=== PATIENT | female | born 1960 | race Caucasian/White ===

== ENCOUNTER 2018-01-14 14:06 | Emergency (ER) | payer OTHER, SELFPAY ==
[2018-01-14 14:09] VITALS: BP 147/91; PULSE 73; RESP 15; TEMP 36.6; O2SAT 98; BMI 31.5
[2018-01-14 14:16] VITALS: BP 140/91; PULSE 76; RESP 15; O2SAT 97
[2018-01-14 14:26] LABS: Bedside Glucose 122 mg/dL (70-110)
--- NOTE | 2018-01-14 14:29 | EKG12_ITS ---
Test Reason : SYNCOPE Blood Pressure : / mmHG Vent. Rate : 085 BPM Atrial Rate : 085 BPM P-R Int : 168 ms QRS Dur : 090 ms QT Int : 398 ms P-R-T Axes : 028 -02 011 degrees QTc Int : 473 ms Normal sinus rhythm Cannot rule out Anterior infarct , age undetermined Abnormal ECG Confirmed by TRINH DANIELS, SHAUN ([id number]), acquisitions editor NIC JEAN ([id number]) on 01/17/2018 1:05:14 PM Referred By: BHAVANA Confirmed By:SHAUN TSANG MD
[2018-01-14 14:40] LABS: Absolute Lymphocyte Count 2.48 X10^3/ul (0.83-4.51); Absolute Neutrophil Count 2.9 X10^3/uL (2.0-7.7); Basophil# 0.01 X10^3/uL; Basophil% 0.2 % (0-1); Eosinophil# 0.12 X10^3/uL; Hematocrit 40.5 % (37-47); Hemoglobin 13.4 g/dl (12.0-15.0); Lymphocyte # 2.48 X10^3/ul (4.0); Lymphocyte % 41.6 % (19-41); Mean Corp Hgb Conc 33.1 g/gl (32-36); Mean Corpuscular Hgb 28.3 pg (27.0-32.0); Mean Corpuscular Volume 85.4 fL (81-99); Mean Platelet Vol. 10.6 fl (6.2-12.0); Monocyte% 6.7 % (0-10); Neutrophil # 2.94 X10^3/uL (2.7-7.7); Neutrophil % 49.3 % (47-70); POSITIVE COUNT NO; POSITIVE DIFFERENTIAL NO; POSITIVE MORPHOLOGY NO; Platelet Count 204 K/mm3 (150-450); RBC Distribution Width CV 13.3 % (11.6-14.6); Red Blood Count 4.74 M/mm3 (4.2-5.4)
[2018-01-14 14:53] LABS: ALB/GLOB Ratio 1.2 RATIO (0.9-2.4); AST(SGOT) 47 U/L (15-37); Alanine Aminotransfer ALT/SGPT 53 U/L (13-56); Albumin, Serum 3.9 g/dL (3.2-5.0); Alkaline Phosphatase 136 U/L (45-117); Anion Gap 18 (5-15); BUN 15 mg/dL (7-18); BUN/Creat Ratio 20.5 RATIO (10-20); Calcium,Total 9.1 mg/dL (8.5-10.1); Chloride 102 mmol/L (98-107); Creatinine, Serum 0.73 mg/dL (0.55-1.02); EST Glomerular Filtration Rate 88 mL/min (>60); Est Glom Filt Rate - Afr Amer 106 mL/min (>60); Estimated Creatinine Clearance 68.06 ml/min; Globulin 3.3 g/dL (2.2-4.2); Glucose 130 mg/dL (74-106); Lipase 98 U/L (73-393); Potassium 3.4 mmol/L (3.5-5.1); Protein, Total 7.2 g/dL (6.4-8.2); Sodium Level 137 mmol/L (136-145)
[2018-01-14 15:02] LABS: Bacteria 0 SEEN /hpf (None Seen); Mucous, Urine 0 SEEN /hpf (<or=2+); Red Blood Cells-Urine 0 SEEN /hpf (0-5); White Blood Cells 0 SEEN /hpf (0-5)
[2018-01-14 15:03] LABS: Color, Urine Yellow (Yellow); Glucose, Dipstick Normal (Normal); Ketone-Dipstick Negative (Negative); Leukocyte Esterase-Dipstick Negative /ul (Negative); Nitrite-Dipstick Negative (Negative); Occult Blood-Urine Negative /ul (Negative); Protein-Dipstick Negative (Negative); Specific Gravity, Urine 1.015 (1.002-1.030); Urine Bilirubin Dipstick Negative (Negative); Urine Clarity Clear (Clear); Urine Urobilinogen Normal (Normal)
[2018-01-14 15:04] LABS: Squamous Epithelial Cells - UA 0-5 SEEN /hpf (5-10)
[2018-01-14 15:45] LABS: Bedside Glucose 137 mg/dL (70-110)
[2018-01-14] MEDS: 0.9% Normal Saline 1,000 ML 999 ML IV ×3 (16:12→17:15)
[2018-01-14 16:13] VITALS: BP 128/80; PULSE 82; RESP 20; O2SAT 99
[2018-01-14 16:40] LABS: Lactic Acid 2.9 mmol/L (0.4-2.0)
--- NOTE | 2018-01-14 16:43 | ED.RN ---
pt lactic 2.9. dr. salas informed.
--- NOTE | 2018-01-14 16:45 | ED.VISSUMM ---
- ER Visit Summary Date of Service: 01/14/18 Chief Complaint: Near syncope History of Present Illness: The patient is a 57 F who is a type II diabetic on metformin and glyburide. The patient states that today she got up and had breakfast at 0900 consisting of a slice of peanut butter toast and 3 clementines. This afternoon at work around 1400 hrs. the patient began to feel shaky sweaty nauseated went to the bathroom. 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 She was given orange juice by some fellow coworkers and when EMS arrived her blood sugar was 101. She states that she had been breathing rather fast and had some facial tingling which has resolved. Patient denies any chest pain or shortness of breath. No palpitations. No fevers. Physical Examination: Afebrile vital signs are stable Gen: Well-nourished well-developed Head: Normocephalic atraumatic Eyes: Perrl EOMI ENT: TMs clear no rhinorrhea moist mucous membranes Neck: Supple no lymphadenopathy no JVD nontender CVS: Regular rate rhythm no murmurs normal S1-S2 Respiratory: No distress clear to auscultation bilaterally chest nontender Abdomen: Soft nontender nondistended normal bowel sounds no masses Back: Nontender Extremity: Nontender no edema Skin: Normal color no rash Neuro: alert orientated ?3 CN II-XII intact normal strength sensation reflexes gait cerebellar Psych: Normal affect normal mood Test Results: CBC was normal. Chemistry showed a CO2 of 17 and anion. Lactic acid 2.9 and ketones are negative. Troponin negative. EKG sinus at a rate of 85. Chest x-ray shows a normal mediastinal silhouette. Emergency Department Course and Treatment: Patient received IV fluids. She has had ham sandwich, yogurt, Richelle Mcintyre, pop, and other foods. She has been resting comfortably has not had any events on monitor. I suspect the elevated lactic acid is due to metformin use. Patient will receive a second liter of IV fluids and we will recheck her BMP. As long as the patient is feeling better I believe the patient can be discharged home. I believe the patient most likely had a hypoglycemic episode. She will return if worsening or concerns. Follow-up with no doc family medicine Dr. Hopson is next up. Impression: 1. Diabetic hypoglycemia This note was generated with [employer] software. It may contain incorrect words, spelling, and punctuation that were not noted in review of the chart prior to signing ED Disposition - Plan for ED Patient: Disposition: Home or Assisted Living Chief Complaint: Syncope Instructions: ED Diabetes Hypoglycemia Oral Agent Referrals: Apolinar Hopson MD [STAFF PHYSICIAN] - As soon as possible
[2018-01-14 17:21] LABS: Bedside Glucose 175 mg/dL (70-110)
[2018-01-14 18:54] VITALS: BP 136/78; PULSE 67; RESP 18; O2SAT 99
[2018-01-14 18:56] LABS: Anion Gap 12 (5-15); BUN 14 mg/dL (7-18); BUN/Creat Ratio 23.3 RATIO (10-20); Calcium,Total 7.8 mg/dL (8.5-10.1); Chloride 111 mmol/L (98-107); EST Glomerular Filtration Rate 110 mL/min (>60); Est Glom Filt Rate - Afr Amer 133 mL/min (>60); Glucose 138 mg/dL (74-106); Sodium Level 145 mmol/L (136-145)
[2018-01-14 19:38] VITALS: BP 146/86; PULSE 64; RESP 18; O2SAT 98
[2018-01-14 19:55] LABS: Reflex Lactate? Y
== END 2018-01-14 19:39 | disposition home or self-care (01) ==
PROVIDERS: Emergency Provider Emergency Medicine
DX: E11.649 Type 2 diabetes mellitus with hypoglycemia without coma (principal); Z79.84 Long term (current) use of oral hypoglycemic drugs; Z87.891 Personal history of nicotine dependence
CPT/HCPCS: 36415; 71045; 80048; 80053; 81001; 82009; 82962; 83605; 83690; 84484; 85025; 93005; 96360; 96361; 99285; J7030; A4216

== ENCOUNTER 2018-06-10 21:10 | Emergency (ER) | payer OTHER, SELFPAY ==
[2018-06-10 21:12] VITALS: BP 159/90; PULSE 84; RESP 18; TEMP 36.6; O2SAT 98; BMI 29.2
--- NOTE | 2018-06-10 21:28 | ED.VISSUMM ---
- ER Visit Summary Date of Service: 06/10/18 Chief Complaint: Fall History of Present Illness: The patient is a 57 F presenting after fall. Patient was at work. She tripped and fell landing on her right knee. She did not hit her head or lose consciousness. She has not tried to ambulate since. She complains of right knee pain. She denies other injuries. Physical Examination: Vitals are stable. Patient is afebrile. Alert no acute distress. HEENT exam is unremarkable. Neck is nontender Lungs are clear and equal bilaterally. Heart is regular rate and rhythm. Extremities anterior right knee tenderness with painful range of motion, normal distal pulse. Skin is warm and dry. No focal neurologic deficit. Remainder of exam is unremarkable. Emergency Department Course and Treatment: X-ray right knee shows no acute process. Patient was given Hume x1 in the ED. She is advised to follow-up with corporate care. Advised return to ED if worsening complaints. Disposition: Discharge home Impression: Right knee contusion This note was generated with curated.by dictation software. It may contain incorrect words, spelling, and punctuation that were not noted in review of the chart prior to signing ED Disposition - Plan for ED Patient: Instructions: ED Sprain Knee Prescriptions: Hydrocodone Bitart/Apap 5-325 [[place] 5MG-325MG] 1 tablet PO Q6H PRN PRN 3 Days #10 tablet PRN Reason: Pain [facility] [GROUP OF PHYSICIANS] - Apolinar Hopson MD [Primary Care Provider] -
--- NOTE | 2018-06-10 21:32 | RAD_ITS ---
STUDY: X-RAY - RIGHT KNEE REASON FOR EXAM: Female, 57 years old. Pain after a fall TECHNIQUE: 5 view(s) of the knee. COMPARISON: None. FINDINGS: Normal visualized distal femur. Normal visualized proximal tibia and fibula. Normal proximal tibiofibular articulation. Normal medial femorotibial compartment. Normal lateral femorotibial compartment. Normal patellofemoral articulation. The soft tissue structures are unremarkable. RAD/Knee 4 or More Views IMPRESSION: Normal x-ray examination of the knee. Electronically Signed: Bj Valerio MD at 22:58 EST , Service support ,
--- NOTE | 2018-06-10 23:11 | ED.DEP ---
ED Disposition - Plan for ED Patient: Instructions: ED Sprain Knee Prescriptions: Hydrocodone Bitart/Apap 5-325 [[place] 5MG-325MG] 1 tablet PO Q6H PRN PRN 3 Days #10 tablet PRN Reason: Pain Referrals: Apolinar Hopson MD [Primary Care Provider[facility] - [facility] [GROUP OF PHYSICIANS] -
--- NOTE | 2018-06-10 23:12 | DCINST.ED_ITS ---
ED Disposition - Plan for ED Patient: Instructions: ED Sprain Knee Prescriptions: Hydrocodone Bitart/Apap 5-325 [[place] 5MG-325MG] 1 tablet PO Q6H PRN PRN 3 Days #10 tablet PRN Reason: Pain Referrals: Apolinar Hopson MD [Primary Care Provider[facility] - [facility] [GROUP OF PHYSICIANS] -
[2018-06-10] MEDS: HYDROcodone Bitartrate/Apap 5/325 Tablet PO (23:14)
== END 2018-06-10 23:24 | disposition home or self-care (01) ==
PROVIDERS: Emergency Provider Emergency Medicine; PCP Internal Medicine
DX: S80.01XA Contusion of right knee, initial encounter (principal); I10 Essential (primary) hypertension; E11.9 Type 2 diabetes mellitus without complications; Z79.84 Long term (current) use of oral hypoglycemic drugs; Z79.899 Other long term (current) drug therapy; W01.0XXA Fall on same level from slipping, tripping and stumbling without subsequent striking against object, initial encounter; Y93.89 Activity, other specified; Y92.89 Other specified places as the place of occurrence of the external cause; Y99.0 Civilian activity done for income or pay
CPT/HCPCS: 73564; 99283

== ENCOUNTER 2018-07-28 06:12 | Emergency (ER) | payer BC, SELFPAY ==
[2018-07-28 06:13] VITALS: BP 167/112; PULSE 62; RESP 18; TEMP 36.6; O2SAT 97; BMI 29.2
[2018-07-28 06:15] VITALS: BP 179/99
[2018-07-28 06:37] VITALS: BP 155/88; PULSE 63; RESP 16; O2SAT 96
--- NOTE | 2018-07-28 06:37 | RAD_ITS ---
HISTORY: Cough EXAM:XR Chest 1 View: Portable COMPARISON: 01/14/2018 FINDINGS: EKG leads in place. Normal heart size. No vascular congestion, pleural effusion, or acute pulmonary infiltration. No pneumothorax. The bony thorax appears intact. RAD/Chest 1 View IMPRESSION: No acute cardiopulmonary disease. at 0712 Reported and signed by: Alton Asher MD Electronically Signed: Alton Asher, at 7:11 EDT Tel , Service support ,
--- NOTE | 2018-07-28 06:37 | EKG12_ITS ---
Test Reason : DIZZY Blood Pressure : / mmHG Vent. Rate : 056 BPM Atrial Rate : 056 BPM P-R Int : 136 ms QRS Dur : 096 ms QT Int : 406 ms P-R-T Axes : 024 000 019 degrees QTc Int : 391 ms Sinus bradycardia Otherwise normal ECG Confirmed by TRINH DANIELS, SHAUN ([id number]), primer expeditor and drier BENJAMÍN NOVOA ([id number]) on 07/31/2018 1:01:31 PM Referred By: MARK Confirmed By:SHAUN TSANG MD
--- NOTE | 2018-07-28 06:37 | CT_ITS ---
HISTORY: FACIAL NUMBNESS/DIZZY TECHNIQUE: Multiple axial images were obtained of the brain without intravenous contrast. A radiation dose optimization technique was used for this scan. IV Contrast dosage and agent: None. COMPARISON: None FINDINGS: Normal ventricles and normal vila-white matter differentiation. No intracranial mass, hemorrhage, or acute parenchymal abnormality. Posterior fossa structures are unremarkable. No suspicious extra-axial fluid collection. Right maxillary sinus mucosal thickening. As visualized, the paranasal sinuses appear clear. CT/Brain/Head without Contrast IMPRESSION: 1. Normal CT brain without contrast. 2. Right maxillary sinusitis. Individualized dose optimization techniques were used for this CT. at 0716 Reported and signed by: Alton Asher MD Electronically Signed: Alton Asher, at 7:15 EDT Tel , Service support ,
--- NOTE | 2018-07-28 06:47 | ED.VISSUMM ---
- ER Visit Summary Date of Service: 07/28/18 Chief Complaint: Lightheadedness History of Present Illness: The patient is a 58 F who presents with lightheadedness. This began acutely about 1 hour ago. She also complains of numbness on both sides of her face. No extremity weakness or paresthesias. No speech difficulty. She also complains of throbbing right leg pain for a couple of weeks. She denies any chest pain or shortness of breath. She did have some diarrhea last night. No nausea or vomiting. Physical Examination: Afebrile vitals notable for blood pressure 179/99 No distress resting comfortably Moist mucous membranes Heart regular rate and rhythm Lungs are clear Abdomen soft nontender NIH stroke scale is 0 she has no focal or lateralizing neurological deficits she has normal strength normal sensation clear speech Test Results: EKG shows sinus rhythm at a rate of 56. Labs notable for glucose 328 otherwise unremarkable. Chest x-ray shows no acute disease. CT the head shows normal brain. there is right maxillary sinusitis Emergency Department Course and Treatment: Patient's complaints of bilateral facial numbness are not suggestive of territorial cerebral ischemia. I doubt this is related to process such as TIA. Workup as above is unremarkable. Patient was advised to follow-up with her primary care physician. She was also advised that her glucose was high and she should follow-up to have a hemoglobin A1c and continue to monitor her blood sugars. In regards to her thigh pain on reevaluation she actually states that she has had a throbbing lump there for much longer than a couple of weeks. She was unable to find the lump here. She had no reproducible tenderness. Examination of her thigh is normal. No rash. No erythema. No tenderness. No nodule or mass. She has normal distal pulses. She was advised to also follow-up with her primary care physician should these symptoms continue. Is in agreement with this plan was discharged home. Treatment Plan: [] Disposition: Discharge Impression: Lightheadedness Facial numbness This note was generated with [employer] dictation software. It may contain incorrect words, spelling, and punctuation that were not noted in review of the chart prior to signing ED Disposition - Plan for ED Patient: Referrals: Apolinar Hopson MD [Primary Care Provider] -
[2018-07-28 06:50] VITALS: O2SAT 98
[2018-07-28 06:52] LABS: Absolute Lymphocyte Count 2.02 X10^3/ul (0.83-4.51); Absolute Neutrophil Count 3.2 X10^3/uL (2.0-7.7); Basophil# 0.01 X10^3/uL; Basophil% 0.2 % (0-1); Eosinophil# 0.28 X10^3/uL; Eosinophils% 4.8 % (0-5); Hematocrit 40.4 % (37-47); Hemoglobin 13.6 g/dl (12.0-15.0); Lymphocyte # 2.02 X10^3/ul (4.0); Lymphocyte % 34.5 % (19-41); Mean Corp Hgb Conc 33.7 g/gl (32-36); Mean Corpuscular Hgb 28.7 pg (27.0-32.0); Mean Corpuscular Volume 85.2 fL (81-99); Mean Platelet Vol. 10.6 fl (6.2-12.0); Monocyte# 0.35 X10^3/uL; Neutrophil # 3.18 X10^3/uL (2.7-7.7); Neutrophil % 54.2 % (47-70); Platelet Count 210 K/mm3 (150-450); RBC Distribution Width CV 13.1 % (11.6-14.6); RBC Distribution Width SD 40.9 fl (35.1-43.9); Red Blood Count 4.74 M/mm3 (4.2-5.4); White Blood Count 5.9 K/mm3 (4.4-11.0)
[2018-07-28 06:53] LABS: POSITIVE COUNT NO; POSITIVE DIFFERENTIAL NO; POSITIVE MORPHOLOGY NO
[2018-07-28 06:58] LABS: International Normalized Ratio 0.9; Prothrombin Time (Protime)PT. 11.6 SECONDS (11.7-14.9)
[2018-07-28 06:59] LABS: Partial Thromboplast Time 22.7 Seconds (24.1-36.2)
[2018-07-28 07:08] LABS: Anion Gap 12 (5-15); BUN 20 mg/dL (7-18); BUN/Creat Ratio 28.7 RATIO (10-20); Calcium,Total 9.4 mg/dL (8.5-10.1); Chloride 102 mmol/L (98-107); EST Glomerular Filtration Rate 92 mL/min (>60); Est Glom Filt Rate - Afr Amer 111 mL/min (>60); Estimated Creatinine Clearance 70.13 ml/min; Glucose 328 mg/dL (74-106); Potassium 4.3 mmol/L (3.5-5.1); Sodium Level 136 mmol/L (136-145)
--- NOTE | 2018-07-28 07:37 | ED.DEP ---
ED Disposition - Plan for ED Patient: Instructions: ED Dizziness UKO, ED Paraesthesias Referrals: Apolinar Hopson MD [Primary Care Provider] -
[2018-07-28 07:58] VITALS: BP 148/95; PULSE 61; RESP 15; O2SAT 96
== END 2018-07-28 07:59 | disposition home or self-care (01) ==
PROVIDERS: Emergency Provider Emergency Medicine; Family Provider Internal Medicine; PCP Internal Medicine
DX: R42 Dizziness and giddiness (principal); R20.0 Anesthesia of skin; E11.9 Type 2 diabetes mellitus without complications; I10 Essential (primary) hypertension; E78.00 Pure hypercholesterolemia, unspecified; Z86.73 Personal history of transient ischemic attack (TIA), and cerebral infarction without residual deficits; Z79.84 Long term (current) use of oral hypoglycemic drugs; Z79.82 Long term (current) use of aspirin; Z79.899 Other long term (current) drug therapy
CPT/HCPCS: 70450; 71045; 80048; 84484; 85025; 85610; 85730; 93005; 99284; A4216

== ENCOUNTER 2018-08-10 15:31 | Outpatient (RCR) | payer BC, SELFPAY ==
[2018-08-01 15:58] VITALS: BMI 29.2
== END 2018-09-05 23:59 ==
LOC: DC 15:31
PROVIDERS: Family Provider Internal Medicine; PCP Internal Medicine; Visit Provider Nurse Practitioner Family
DX: Z71.3 Dietary counseling and surveillance (principal); E11.9 Type 2 diabetes mellitus without complications
CPT/HCPCS: G0108

== ENCOUNTER 2018-09-20 16:30 | Outpatient (RCR) | payer BC, SELFPAY ==
[2018-09-06 00:31] VITALS: BMI 29.2
== END 2018-10-06 23:59 ==
LOC: DC 16:30
PROVIDERS: Family Provider Internal Medicine; PCP Internal Medicine; Visit Provider Nurse Practitioner Family
DX: Z71.3 Dietary counseling and surveillance (principal); E11.9 Type 2 diabetes mellitus without complications
CPT/HCPCS: 97802; 97803

== ENCOUNTER 2018-10-04 06:05 | Emergency (ER) | payer BC, SELFPAY ==
[2018-10-04 06:05] VITALS: BP 164/114; PULSE 60; RESP 20; TEMP 36.3; O2SAT 100; BMI 29.1; BMI 29.7
[2018-10-04 06:09] VITALS: RESP 20
--- NOTE | 2018-10-04 06:11 | ED.RN ---
RN CALLED FOR EKG, PULLED OLD EKGS FOR
[2018-10-04 06:13] VITALS: O2SAT 99
--- NOTE | 2018-10-04 06:13 | EKG12_ITS ---
Test Reason : Blood Pressure : / mmHG Vent. Rate : 054 BPM Atrial Rate : 054 BPM P-R Int : 142 ms QRS Dur : 090 ms QT Int : 420 ms P-R-T Axes : 000 -13 013 degrees QTc Int : 398 ms Sinus bradycardia Borderline Low voltage QRS Confirmed by DAWNA DANIELS, AUGUSTINE ([id number]), editorial writer NIC JEAN ([id number]) on 10/09/2018 12:57:50 PM Referred By: Confirmed By:AUGUSTINE TONEY MD
--- NOTE | 2018-10-04 06:13 | RAD_ITS ---
HISTORY: CPChest PainRAD - ChestPT STATED MID BACK PAIN WITH SOB ONSET THIS MORNINGNO HX OF HEART LUNG DISEASE NO CA NONSMOKER EXAMINATION/TECHNIQUE: XR Chest 1 View: Portable COMPARISON: 07/28/2018 FINDINGS: EKG leads in place. No significant change. Normal heart size. No vascular congestion, pleural effusion, or acute pulmonary infiltration. No pneumothorax. The bony thorax appears intact. RAD/Chest 1 View (Portable) IMPRESSION: No acute cardiopulmonary disease. No significant interval change. at 0644 Reported and signed by: Alton Asher MD Electronically Signed: Alton Asher, at 6:43 EDT Tel , Service support ,
[2018-10-04 06:30] LABS: Absolute Lymphocyte Count 2.43 X10^3/ul (0.83-4.51); Basophil# 0.02 X10^3/uL; Basophil% 0.3 % (0-1); Eosinophil# 0.17 X10^3/uL; Eosinophils% 2.8 % (0-5); Hematocrit 43.4 % (37-47); Hemoglobin 14.2 g/dl (12.0-15.0); Lymphocyte # 2.43 X10^3/ul (4.0); Mean Corp Hgb Conc 32.7 g/gl (32-36); Mean Corpuscular Hgb 28.2 pg (27.0-32.0); Mean Corpuscular Volume 86.1 fL (81-99); Mean Platelet Vol. 10.6 fl (6.2-12.0); Monocyte% 6.6 % (0-10); Neutrophil # 3.04 X10^3/uL (2.7-7.7); Neutrophil % 50.1 % (47-70); Platelet Count 238 K/mm3 (150-450); RBC Distribution Width CV 13.2 % (11.6-14.6); RBC Distribution Width SD 40.6 fl (35.1-43.9); Red Blood Count 5.04 M/mm3 (4.2-5.4); White Blood Count 6.1 K/mm3 (4.4-11.0)
[2018-10-04] MEDS: Morphine 4 MG/ML Syringe IV (06:31)
[2018-10-04] MEDS: Ondansetron 4 MG/2 ML Vial IV (06:31)
[2018-10-04] MEDS: Aspirin 81 MG TAB.CHEW 324 MG PO (06:31)
[2018-10-04 06:33] LABS: POSITIVE COUNT NO; POSITIVE DIFFERENTIAL NO; POSITIVE MORPHOLOGY NO
--- NOTE | 2018-10-04 06:34 | ED.DCSUM_ITS ---
- ER Visit Summary Date of Service: 10/04/18 Chief Complaint: Back pain History of Present Illness: The patient is a 58 F presenting with back pain. She states this started approximately an hour prior to arrival. She states she was getting ready doing her normal morning activities and she started to have left upper back pain and pain between her shoulder blades. She denies any trauma. No history of similar symptoms in the past. She denies chest pain. She has shortness of breath associated with the pain. She has history of diabetes, hypertension. Denies other complaints. Physical Examination: Vitals are stable. Patient is afebrile. Alert no acute distress. HEENT exam is unremarkable. Neck is supple. Lungs are clear and equal bilaterally. Heart is regular rate and rhythm. Abdomen is soft nontender nondistended. Back: Left paraspinal thoracic muscle tenderness. No midline tenderness. Extremities are unremarkable. Skin is warm and dry. No focal neurologic deficit. Normal strength and sensation Remainder of exam is unremarkable. Emergency Department Course and Treatment: Patient was given morphine, Zofran IV. EKG is sinus rate of 54 with no acute ischemic changes. CBC, chemistries unremarkable other than glucose 218, BUN 20. Troponin is negative. D-dimer negative. Chest x-ray shows no acute process. On reevaluation, patient is feeling improved. Repeat blood pressure 141/74. CTA chest to rule out dissect ion will be obtained as well as delta troponin. As long as these are negative patient will be discharged. She states she has muscle relaxers at home. She will follow-up with her primary care physician. Advised return to ED if worsening complaints. Disposition: Pending Impression: Thoracic back pain This note was generated with [employer] dictation software. It may contain incorrect words, spelling, and punctuation that were not noted in review of the chart prior to signing ED Disposition - Plan for ED Patient: Instructions: ED Neck Back Pain General Referrals: Apolinar Hopson MD [Primary Care Provider] -
[2018-10-04 06:43] LABS: D-Dimer Quantitative (DVT/PE) < 0.27 FEU/ug/m (0.27-0.49)
[2018-10-04 06:47] LABS: Anion Gap 10 (5-15); BUN 20 mg/dL (7-18); BUN/Creat Ratio 26.9 RATIO (10-20); Calcium,Total 9.4 mg/dL (8.5-10.1); Chloride 102 mmol/L (98-107); Creatinine, Serum 0.74 mg/dL (0.55-1.02); EST Glomerular Filtration Rate 85 mL/min (>60); Est Glom Filt Rate - Afr Amer 103 mL/min (>60); Estimated Creatinine Clearance 66.34 ml/min; Glucose 218 mg/dL (74-106); Potassium 4.3 mmol/L (3.5-5.1); Sodium Level 137 mmol/L (136-145)
--- NOTE | 2018-10-04 06:59 | CT_ITS ---
HISTORY: UPPER BACK PAIN ? DISSECTION EXAMINATION: CTA Chest WO/W Contrast TECHNIQUE: Helically acquired images were obtained of the chest following IV contrast as per pulmonary angiogram protocol with 3D reconstructions. A radiation dose optimization technique was used for this scan. IV Contrast dosage and agent: 100cc Isovue 370 COMPARISON: Portable chest 10/04/2018 FINDINGS: The main, segmental, and visualized subsegmental pulmonary arteries show normal opacification and appearance. No PE. Thoracic aorta is normal in caliber without evidence of aneurysm or dissection. No pericardial effusion. Multiple small mediastinal lymph nodes. No suspicious lymph node enlargement. The lung parenchyma appears clear. No pulmonary infiltrate, pulmonary nodule, or mass. No pleural effusion or significant pleural disease. Fatty liver noted. Bones: No acute osseous abnormality. CT/CTA Chest W/WO Contrast IMPRESSION: 1. Normal CTA chest. No evidence of thoracic aortic aneurysm or dissection. 2. Fatty liver noted. Individualized dose optimization techniques were used for this CT. at 0736 Reported and signed by: Alton Asher MD Electronically Signed: Alton Asher, at 7:35 EDT Tel , Service support ,
--- NOTE | 2018-10-04 07:03 | ED.DEP ---
ED Disposition - Plan for ED Patient: Instructions: ED Neck Back Pain General Referrals: Apolinar Hopson MD [Primary Care Provider] -
[2018-10-04 08:06] VITALS: BP 109/73; PULSE 56; RESP 16; O2SAT 97
[2018-10-04 09:48] VITALS: BP 104/65; PULSE 53; RESP 14; O2SAT 93
[2018-10-04 10:08] VITALS: BP 96/72; PULSE 65; RESP 20; O2SAT 95
== END 2018-10-04 10:26 | disposition home or self-care (01) ==
PROVIDERS: Emergency Provider Emergency Medicine; Family Provider Internal Medicine; PCP Internal Medicine
DX: M54.6 Pain in thoracic spine (principal); I10 Essential (primary) hypertension; E11.9 Type 2 diabetes mellitus without complications; Z79.84 Long term (current) use of oral hypoglycemic drugs; Z79.899 Other long term (current) drug therapy
CPT/HCPCS: 71045; 71275; 80048; 84484; 85025; 85379; 93005; 96374; 96375; 99285; Q9967; A4216; J2405

== ENCOUNTER 2018-10-25 15:37 | Outpatient (RCR) | payer BC, SELFPAY ==
[2018-10-07 00:29] VITALS: BMI 29.1
== END 2018-10-25 23:59 | disposition home or self-care (01) ==
LOC: DC 15:37
PROVIDERS: Family Provider Internal Medicine; PCP Internal Medicine; Visit Provider Nurse Practitioner Family
DX: Z71.3 Dietary counseling and surveillance (principal); E11.9 Type 2 diabetes mellitus without complications
CPT/HCPCS: 97803

== ENCOUNTER 2018-12-16 19:56 | Emergency (ER) | payer BC, SELFPAY ==
[2018-11-22 16:12] VITALS: BMI 28.1
[2018-12-16 19:57] VITALS: BP 161/88; PULSE 72; RESP 16; TEMP 36.8; O2SAT 98; BMI 28.3
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
--- NOTE | 2018-12-16 20:41 | NURSING ---
PT C/O HEADACHE; NOTIFIED ORDERS ENTERED
--- NOTE | 2018-12-16 20:55 | ED.DCSUM_ITS ---
- ER Visit Summary Date of Service: 12/16/18 Chief Complaint: [Depression and suicidal ideation] History of Present Illness: The patient is a 58 F [the emergency department with complaint of feeling depressed over last 2 weeks. Patient states that she is had a lot of stressors in her life currently. Patient states that she does not like her job. Patient states that she lives with her boyfriend and she has some stressors about that. Patient states that she has been stressed about her daughter and her own brother. Today she started having suicidal thoughts. Patient has no plan and she is never acted on harming herself in the past. She does not see a psychiatrist. She is currently not being treated for depression. Patient has been feeling tearful all day.] Physical Examination: [HEENT-PERRLA, EOMI. Cranial nerves II through XII grossly intact. TMs clear. Mucous membranes moist. No adenopathy. Cardiovascular-regular rate and rhythm without murmur or ectopy Lungs-clear to auscultation, chest wall stable without crepitus or subcu emphysema Abdomen-normoactive bowel sounds, soft, nontender, no rebound or rigidity, no peritoneal signs. Extremities-intact ?4, normal range of motion, normal pulses, atraumatic] Test Results: [CBC with differential is normal. Chemistries were normal. Tox screen was negative. Alcohol was negative.] Emergency Department Course and Treatment: [] Treatment Plan: [Patient will be seen by social media marketing manager] Disposition: [Ending evaluation by social media marketing manager and suspect patient will likely require transfer to psychiatric facility] Impression: [Depression Suicidal ideation] This note was generated with [employer] software. It may contain incorrect words, spelling, and punctuation that were not noted in review of the chart prior to signing <Mario Astorga - Last Filed: 12/16/18 22:38> - ER Visit Summary Date of Service: 12/17/18 Chief Complaint: [] History of Present Illness: The patient is a 58 F [] Physical Examination: [] Test Results: [] Emergency Department Course and Treatment: [] Treatment Plan: Patient was medically cleared and accepted at [facility] Disposition: [] Impression: [] This note was generated with [employer] software. It may contain incorrect words, spelling, and punctuation that were not noted in review of the chart prior to signing <Lowe,Dawit - Last Filed: 12/17/18 03:39> ED Disposition <Mario Astorga - Last Filed: 12/16/18 22:38> <Dawit Westbrook - Last Filed: 12/17/18 03:39> - Plan for ED Patient: Referrals: Apolinar Hopson MD [Primary Care Provider] -
[2018-12-16] MEDS: Acetaminophen 325 MG Tablet 650 MG PO (20:58)
[2018-12-16 21:01] LABS: Absolute Lymphocyte Count 2.88 X10^3/uL (0.83-4.51); Absolute Neutrophil Count 2.8 X10^3/uL (2.0-7.7); Basophil# 0.02 X10^3/uL; Basophil% 0.3 % (0-1); Eosinophil# 0.21 X10^3/uL; Eosinophils% 3.3 % (0-5); Hematocrit 43.6 % (37-47); Hemoglobin 14.4 g/dL (12.0-15.0); Lymphocyte # 2.88 X10^3/ul (4.0); Lymphocyte % 45.1 % (19-41); Mean Corpuscular Hgb 28.9 pg (27.0-32.0); Mean Corpuscular Volume 87.4 fL (81-99); Mean Platelet Vol. 10.7 fl (6.2-12.0); Monocyte# 0.43 X10^3/uL; Monocyte% 6.7 % (0-10); NRBC Flagged by Analyzer 0 % (0-5); Neutrophil # 2.82 X10^3/uL (2.7-7.7); Neutrophil % 44.3 % (47-70); Platelet Count 232 K/mm3 (150-450); RBC Distribution Width CV 12.2 % (11.6-14.6); RBC Distribution Width SD 39.3 fl (35.1-43.9); Red Blood Count 4.99 M/mm3 (4.2-5.4); White Blood Count 6.4 K/mm3 (4.4-11.0)
[2018-12-16 21:11] LABS: Anion Gap 10 (5-15); BUN 18 mg/dL (7-18); BUN/Creat Ratio 22.5 RATIO (10-20); Calcium,Total 9.6 mg/dL (8.5-10.1); Chloride 106 mmol/L (98-107); EST Glomerular Filtration Rate 78 mL/min (>60); Est Glom Filt Rate - Afr Amer 95 mL/min (>60); Estimated Creatinine Clearance 61.36 ml/min; Glucose 153 mg/dL (74-106); Potassium 3.8 mmol/L (3.5-5.1); Sodium Level 140 mmol/L (136-145)
[2018-12-16 21:38] VITALS: BP 154/62; PULSE 88; RESP 18; O2SAT 97
[2018-12-16 22:19] LABS: Amphetamine Urine VISTA NEGATIVE (<1000 ng/mL); Barbiturate Urine VISTA NEGATIVE (< 200 ng/mL); Benzodiazepine Urine VISTA NEGATIVE (< 200 ng/mL); Cocaine Urine VISTA NEGATIVE (< 300 ng/mL); Ecstacy Urine VISTA NEGATIVE (< 500 ng/mL); Methadone Urine VISTA NEGATIVE (< 300 ng/mL); PCP Urine VISTA NEGATIVE (< 25 ng/mL); THC Urine VISTA NEGATIVE (< 50 ng/mL); Vista UDS pH Range 6
--- NOTE | 2018-12-16 22:25 | CM.ED ---
Social Work Referral faxed to [facility]. Pending approval at this time. Venkatesh VELOZ, BETITO
[2018-12-16 22:34] VITALS: PULSE 69; RESP 18; O2SAT 97
[2018-12-16 23:00] VITALS: BP 134/78; PULSE 92; RESP 18; O2SAT 97
--- NOTE | 2018-12-16 23:45 | CM.ED ---
Social Work Telephone call to [facility], updated referral to contact ED directly with outcome. Case still being reviewed. Venkatesh Torres MSW, BETITO
[2018-12-17 02:00] VITALS: BP 120/80; PULSE 62; RESP 18; TEMP 36.4; O2SAT 96
[2018-12-17 03:28] VITALS: RESP 18
[2018-12-17 06:00] VITALS: BP 120/80; PULSE 57; RESP 16; TEMP 36.3; O2SAT 95
[2018-12-17 06:01] VITALS: BP 120/80; PULSE 57; RESP 16; TEMP 36.3; O2SAT 95
[2018-12-17 07:15] VITALS: RESP 14
[2018-12-17 08:07] VITALS: BP 123/91; PULSE 61; RESP 14; O2SAT 97
== END 2018-12-17 08:20 | disposition home or self-care (01) ==
LOC: ED 20:32
PROVIDERS: Emergency Provider Emergency Medicine; Family Provider Internal Medicine; PCP Internal Medicine
DX: F32.9 Major depressive disorder, single episode, unspecified (principal); R45.851 Suicidal ideations; R19.7 Diarrhea, unspecified; E11.9 Type 2 diabetes mellitus without complications; I10 Essential (primary) hypertension; E78.00 Pure hypercholesterolemia, unspecified; Z79.82 Long term (current) use of aspirin; Z79.84 Long term (current) use of oral hypoglycemic drugs; Z79.899 Other long term (current) drug therapy
CPT/HCPCS: 80048; 80307; 80320; 85025; 99283; G0480

== ENCOUNTER → 2019-02-19 | Outpatient (CLI) | payer BC, SELFPAY ==
[2019-01-11 14:35] VITALS: BMI 28.3
[2019-02-19 07:20] LABS: Mucous, Urine 0 SEEN /hpf (<or=2+); Red Blood Cells-Urine 0 SEEN /hpf (0-5)
[2019-02-19 08:01] LABS: Color, Urine Yellow (Yellow); Glucose, Dipstick 1000 mg/dl (Normal); Ketone-Dipstick Negative (Negative); Leukocyte Esterase-Dipstick 25 /ul (Negative); Nitrite-Dipstick Negative (Negative); Occult Blood-Urine Negative /ul (Negative); Protein-Dipstick Negative (Negative); Specific Gravity, Urine 1.015 (1.002-1.030); Urine Bilirubin Dipstick Negative (Negative); Urine Clarity Sl. Cloudy (Clear); Urine Urobilinogen Normal (Normal)
[2019-02-19 08:08] LABS: Anion Gap 7 (5-15); BUN 17 mg/dL (7-18); BUN/Creat Ratio 27.4 RATIO (10-20); Bacteria 1+ /hpf (None Seen); Calcium,Total 8.9 mg/dL (8.5-10.1); Chloride 107 mmol/L (98-107); Creatinine, Serum 0.62 mg/dL (0.55-1.02); EST Glomerular Filtration Rate 105 mL/min (>60); Est Glom Filt Rate - Afr Amer 127 mL/min (>60); Glucose 160 mg/dL (74-106); Sodium Level 141 mmol/L (136-145); Squamous Epithelial Cells - UA 0-5 SEEN /hpf (5-10); White Blood Cells 0-5 SEEN /hpf (0-5)
[2019-02-19 08:14] LABS: Cholesterol 164 mg/dL (200); High Density Lipoprotein 47 mg/dL; Triglycerides 309 mg/dL; Very Low Density Lipoprotein 62 mg/dL (5-40)
[2019-02-19 08:18] LABS: Microalbumin,Random Urine < 5.0 mg/L (NO RANGE EST.)
[2019-02-19 08:37] LABS: Hemoglobin A1c 7.4 % (4.2-6.3)
== END | disposition home or self-care (01) ==
PROVIDERS: Family Provider Internal Medicine; PCP Internal Medicine; Referring Provider Nurse Practitioner Family; Visit Provider Nurse Practitioner Family
DX: I10 Essential (primary) hypertension (principal); E11.9 Type 2 diabetes mellitus without complications
CPT/HCPCS: 36415; 80048; 80061; 81001; 82043; 82570; 83036

== ENCOUNTER → 2019-02-23 | Outpatient (CLI) | payer BC, SELFPAY ==
[2019-02-23 15:02] VITALS: BMI 28.3
--- NOTE | 2019-02-23 15:50 | RAD_ITS ---
STUDY: X-RAY - PELVIS AND RIGHT HIP REASON FOR EXAM: Female, 58 years old. Right hip pain radiating into the leg TECHNIQUE: 3 views of the pelvis and hip. COMPARISON: None. FINDINGS: There is a non-specific bowel gas pattern. Normal visualized soft tissue structures. Appendectomy surgical clips are present. Normal bilateral iliac wings, sacroiliac joints and visualized sacrum. Normal bilateral superior and inferior pubic rami. Normal pubic symphysis. Normal bilateral ischial tuberosities. Normal visualized femoral head. Normal acetabulum. Normal hip joint. RAD/HIP, UNI W/ Pelvis 2-3 Views IMPRESSION: Normal x-ray examination of the pelvis and hip. Electronically Signed: Elian Almazan MD (Brooks) at 15:38 EDT , Service support ,
== END | disposition home or self-care (01) ==
LOC: RAD 15:44
PROVIDERS: Family Provider Internal Medicine; PCP Internal Medicine; Referring Provider Nurse Practitioner Family; Visit Provider Nurse Practitioner Family
DX: M25.551 Pain in right hip (principal); G89.29 Other chronic pain
CPT/HCPCS: 73502

== ENCOUNTER 2019-04-13 10:14 | Emergency (ER) | payer BC, SELFPAY ==
[2019-04-13 08:46] VITALS: BMI 28.3
[2019-04-13 10:15] VITALS: BP 105/68; PULSE 67; RESP 17; TEMP 36.7; O2SAT 96; BMI 27.1
--- NOTE | 2019-04-13 10:29 | CT_ITS ---
STUDY: CT ABDOMEN AND PELVIS WITHOUT CONTRAST REASON FOR EXAM: Female, 58 years old. 3 day history of left lower quadrant pain. RADIATION DOSAGE (If Supplied By Facility): CTDIvol = ( 7.43 ) mGy, DLP = ( 339.52 ) mGycm TECHNIQUE: Transaxial images were obtained from the dome of the diaphragm to the symphysis pubis without oral contrast, and without intravenous contrast. Sagittal and coronal images were reconstructed. Individualized dose optimization techniques were used for this CT. COMPARISON: None. FINDINGS: The visualized lung bases are unremarkable. The visualized portions of the heart are within normal limits. Normal liver. Normal gallbladder and extrahepatic biliary system. Normal spleen. Normal pancreas. Normal bilateral adrenal glands. Normal right kidney. Normal left kidney. There is a small hiatal hernia. Normal small intestine. There are multiple colonic diverticula consistent with diverticulosis. There are surgical clips in the region of the appendix consistent with a prior appendectomy. There is diffuse atherosclerotic calcification of the abdominal aorta and major visceral branches, without a demonstrated aneurysm. Normal inferior vena cava. Normal retroperitoneum. Normal urinary bladder. There is absence of the uterus consistent with a prior hysterectomy. Normal abdominal wall. Normal osseous structures. CT/Abdomen/Pelvis without Cont IMPRESSION: Sigmoid diverticulosis. Electronically Signed: Tommy Quiros, at 11:22 EST , Service support ,
--- NOTE | 2019-04-13 10:31 | ED.VISSUMM ---
- ER Visit Summary Date of Service: 04/13/19 Chief Complaint: [Abdominal pain] History of Present Illness: The patient is a 58 F [those of the emergency department with complaint of abdominal pain that started 3 days ago. Patient states that it became more severe last night. Patient planes of pain with movement. She denies any nausea or vomiting. Denies fever. She denies urinary symptoms. Patient was seen at her primary care physician's office and referred to the emergency department for imaging. Patient has history of prior TIA, diabetes, hypertension, and remote history of diverticulitis. Has never had pain like this before. Patient is unsure if she may be hurt herself because she has been moving boxes around lately because her significant other is leaving her.] Physical Examination: [HEENT-PERRLA, EOMI. Cranial nerves II through XII grossly intact. TMs clear. Mucous membranes moist. No adenopathy. Cardiovascular-regular rate and rhythm without murmur or ectopy Lungs-clear to auscultation, chest wall stable without crepitus or subcu emphysema Abdomen-normoactive bowel sounds, soft. Patient has tenderness palpation over left lower quadrant with guarding. There is no rebound, rigidity, cranial signs. Extremities-intact ?4, normal range of motion, normal pulses, atraumatic] Test Results: [CBC with differential obtained showing a 7.3, hemoglobin 14.5, hematocrit 43, platelets 312. Chemistries unremarkable. Urinalysis showed 1000 glucose but no evidence of infection. Lactate was 2.3. CT scan of the abdomen pelvis without contrast showed diverticulosis otherwise nothing acute.] Emergency Department Course and Treatment: [He was medicated with morphine and Zofran had good pain relief with that] Treatment Plan: [Patient will be given a prescription for [place] for pain. Patient advised to push fluids. Suspect her abdominal pain may be related to an abdominal wall strain. Patient advised to return if worsening pain, fever, vomiting, bloody stools, or condition should worsen anyway.] Disposition: [Discharged home in stable condition.] Impression: [Abdominal pain-etiology uncertain] This note was generated with [employer] software. It may contain incorrect words, spelling, and punctuation that were not noted in review of the chart prior to signing ED Disposition - Plan for ED Patient: Referrals: Apolinar Hopson MD [Primary Care Provider] -
[2019-04-13] MEDS: Ondansetron 4 MG/2 ML Vial IV (10:46)
[2019-04-13] MEDS: Morphine 4 MG/ML Syringe IV (10:46)
[2019-04-13] MEDS: 0.9% Normal Saline 1,000 ML 125 ML IV (10:46)
[2019-04-13 10:55] LABS: Bacteria 0 SEEN /hpf (None Seen); Mucous, Urine 0 SEEN /hpf (<or=2+); Red Blood Cells-Urine 0 SEEN /hpf (0-5); White Blood Cells 0 SEEN /hpf (0-5)
[2019-04-13 10:56] LABS: Color, Urine Straw (Yellow); Glucose, Dipstick 1000 mg/dl (Normal); Ketone-Dipstick Negative (Negative); Leukocyte Esterase-Dipstick Negative /ul (Negative); Nitrite-Dipstick Negative (Negative); Occult Blood-Urine Negative /ul (Negative); Protein-Dipstick Negative (Negative); Urine Bilirubin Dipstick Negative (Negative); Urine Clarity Clear (Clear); Urine Urobilinogen Normal (Normal)
[2019-04-13 10:57] LABS: Absolute Lymphocyte Count 2.22 X10^3/uL (0.83-4.51); Absolute Neutrophil Count 4.4 X10^3/uL (2.0-7.7); Basophil# 0.03 X10^3/uL; Basophil% 0.4 % (0-1); Eosinophil# 0.11 X10^3/uL; Eosinophils% 1.5 % (0-5); Hemoglobin 14.5 g/dL (12.0-15.0); Lymphocyte # 2.22 X10^3/ul (4.0); Lymphocyte % 30.5 % (19-41); Mean Corp Hgb Conc 33.7 g/dL (32-36); Mean Corpuscular Hgb 28.9 pg (27.0-32.0); Mean Corpuscular Volume 85.8 fL (81-99); Mean Platelet Vol. 9.3 fl (6.2-12.0); Monocyte# 0.46 X10^3/uL; Monocyte% 6.3 % (0-10); NRBC Flagged by Analyzer 0 % (0-5); Neutrophil # 4.44 X10^3/uL (2.7-7.7); Platelet Count 312 K/mm3 (150-450); RBC Distribution Width CV 12.9 % (11.6-14.6); Red Blood Count 5.01 M/mm3 (4.2-5.4); White Blood Count 7.3 K/mm3 (4.4-11.0)
[2019-04-13 11:07] LABS: BUN 15 mg/dL (7-18); Calcium,Total 9.9 mg/dL (8.5-10.1); Chloride 99 mmol/L (98-107); Creatinine, Serum 0.65 mg/dL (0.55-1.02); EST Glomerular Filtration Rate 99 mL/min (>60); Est Glom Filt Rate - Afr Amer 120 mL/min (>60); Estimated Creatinine Clearance 75.52 ml/min; Glucose 105 mg/dL (74-106); Potassium 4.3 mmol/L (3.5-5.1); Sodium Level 134 mmol/L (136-145)
[2019-04-13 11:08] LABS: Anion Gap 10 (5-15)
[2019-04-13 11:27] LABS: Lactic Acid 2.3 mmol/L (0.4-1.9)
[2019-04-13 11:56] LABS: Squamous Epithelial Cells - UA 0-5 SEEN /hpf (5-10)
--- NOTE | 2019-04-13 14:08 | DCINST.ED_ITS ---
ED Disposition - Plan for ED Patient: Instructions: ABDOMINAL PAIN, Unknown Cause, (Female) Prescriptions: Hydrocodone Bitart/Apap 5-325 [[place] 5MG-325MG] 1 tab PO Q4H PRN PRN 2 Days #10 tab PRN Reason: Pain Prescription Printed Referrals: Apolinar Hopson MD [Primary Care Provider] - 3-5 Days
[2019-04-13 14:26] VITALS: BP 106/70; PULSE 60; RESP 16; O2SAT 100
[2019-04-13 14:52] LABS: Reflex Lactate? Y
== END 2019-04-13 14:28 | disposition home or self-care (01) ==
LOC: ED 11:21
PROVIDERS: Emergency Provider Emergency Medicine; Family Provider Internal Medicine; PCP Internal Medicine
DX: R10.32 Left lower quadrant pain (principal); K57.90 Diverticulosis of intestine, part unspecified, without perforation or abscess without bleeding; I10 Essential (primary) hypertension; E11.9 Type 2 diabetes mellitus without complications; Z86.73 Personal history of transient ischemic attack (TIA), and cerebral infarction without residual deficits
CPT/HCPCS: 74176; 80048; 81001; 83605; 85025; 96361; 96374; 96375; 99283; J7030; A4216; J2405

== ENCOUNTER → 2019-04-29 09:59 | Outpatient (CLI) | payer BC, SELFPAY ==
[2019-04-29 08:27] VITALS: BMI 27.1
== END ==
PROVIDERS: Family Provider Internal Medicine; PCP Internal Medicine; Referring Provider Physician Assistant; Visit Provider Physician Assistant
DX: J02.9 Acute pharyngitis, unspecified (principal)
CPT/HCPCS: 87070

== ENCOUNTER → 2019-06-16 08:48 | Outpatient (CLI) | payer OTHER, SELFPAY ==
[2019-05-31 15:59] VITALS: BMI 26.6
--- NOTE | 2019-06-16 08:48 | BI_ITS ---
MAMMOGRAPHY - BILATERAL SCREENING REASON FOR EXAM: Female, 58 years old. Routine annual screening examination. PERTINENT HISTORY: Grandmother with breast cancer. TECHNIQUE: Digital bilateral breast moy (3D mammographic acquisition) in the CC and MLO projections. 2-D mediolateral oblique (MLO) and craniocaudad (CC) views of both breasts were obtained. CAD: Full Field Digital Mammography with Computer Added Detection was performed. COMPARISON: Comparison is made with prior abdomen examination dated February 04, 2017. FINDINGS: Breast Composition: The breasts are heterogeneously dense, which may obscure small masses. There are no dominant masses or suspicious calcifications. No other significant abnormalities are identified. There has been no significant change since the prior study. BI/SCREEN MAMM (CAD) W/MOY BILAT IMPRESSION: Stable bilateral screening mammogram. Yearly follow-up mammogram recommended. (A) ASSESSMENT CATEGORY: BIRADS Category 1: Negative. A letter regarding these results will be sent to the patient by the facility within 30 days. Approximately 10% of breast cancers are not detected by mammography. A normal mammogram should not delay biopsy of a clinically suspicious abnormality. [id number] Electronically Signed: Tommy Quiros, at 10:50 EST , Service support ,
== END ==
LOC: OPBI 08:48
PROVIDERS: PCP Internal Medicine; Referring Provider Internal Medicine; Visit Provider Internal Medicine
DX: Z12.31 Encounter for screening mammogram for malignant neoplasm of breast (principal)
CPT/HCPCS: 77063; 77067

== ENCOUNTER → 2019-11-02 11:07 | Outpatient (CLI) | payer OTHER, SELFPAY ==
[2019-11-02 10:16] VITALS: BMI 26.6
[2019-11-02 12:38] LABS: Absolute Lymphocyte Count 2.23 X10^3/uL (0.83-4.51); Absolute Neutrophil Count 3.1 X10^3/uL (2.0-7.7); Basophil# 0.02 X10^3/uL; Basophil% 0.3 % (0-1); Eosinophil# 0.13 X10^3/uL; Eosinophils% 2.2 % (0-5); Hematocrit 43.7 % (37-47); Hemoglobin 14.4 g/dL (12.0-15.0); Lymphocyte # 2.23 X10^3/ul (4.0); Lymphocyte % 37.8 % (19-41); Mean Corpuscular Hgb 28.9 pg (27.0-32.0); Mean Corpuscular Volume 87.8 fL (81-99); Mean Platelet Vol. 10.7 fl (6.2-12.0); Monocyte# 0.41 X10^3/uL; Monocyte% 6.9 % (0-10); NRBC Flagged by Analyzer 0 % (0-5); Neutrophil # 3.08 X10^3/uL (2.7-7.7); Neutrophil % 52.3 % (47-70); Platelet Count 250 K/mm3 (150-450); RBC Distribution Width CV 12.9 % (11.6-14.6); RBC Distribution Width SD 41.3 fl (35.1-43.9); Red Blood Count 4.98 M/mm3 (4.2-5.4); White Blood Count 5.9 K/mm3 (4.4-11.0)
[2019-11-02 12:49] LABS: ALB/GLOB Ratio 1.5 RATIO (0.9-2.4); AST(SGOT) 28 U/L (15-37); Alanine Aminotransfer ALT/SGPT 53 U/L (13-56); Albumin, Serum 4.3 g/dL (3.2-5.0); Alkaline Phosphatase 98 U/L (45-117); Anion Gap 8 (5-15); BUN 14 mg/dL (7-18); BUN/Creat Ratio 27.1 RATIO (10-20); Calcium,Total 9.3 mg/dL (8.5-10.1); Chloride 101 mmol/L (98-107); Creatinine, Serum 0.52 mg/dL (0.55-1.02); EST Glomerular Filtration Rate 130 mL/min (>60); Est Glom Filt Rate - Afr Amer 157 mL/min (>60); Globulin 2.8 g/dL (2.2-4.2); Glucose 110 mg/dL (74-106); Potassium 4.2 mmol/L (3.5-5.1); Protein, Total 7.1 g/dL (6.4-8.2); Sodium Level 135 mmol/L (136-145)
[2019-11-02 13:03] LABS: Microalbumin,Random Urine < 5.0 mg/L (NO RANGE EST.)
== END ==
LOC: BIMLAB 11:08
PROVIDERS: PCP Internal Medicine; Referring Provider Internal Medicine; Visit Provider Internal Medicine
DX: I10 Essential (primary) hypertension (principal); E11.9 Type 2 diabetes mellitus without complications
CPT/HCPCS: 36415; 80053; 82043; 82570; 85025

== ENCOUNTER → 2019-12-20 12:19 | Outpatient (CLI) | payer OTHER, SELFPAY ==
[2019-11-02 10:16] VITALS: BMI 26.6
[2019-12-20 12:20] LABS: Bacteria 0 SEEN /hpf (None Seen); Mucous, Urine 0 SEEN /hpf (<or=2+)
[2019-12-20 12:25] LABS: Color, Urine Yellow (Yellow); Glucose, Dipstick 1000 mg/dl (Normal); Ketone-Dipstick Negative (Negative); Leukocyte Esterase-Dipstick 100 /ul (Negative); Nitrite-Dipstick Negative (Negative); Occult Blood-Urine 50 /ul (Negative); Protein-Dipstick Negative (Negative); Urine Bilirubin Dipstick Negative (Negative); Urine Clarity Clear (Clear); Urine Urobilinogen Normal (Normal)
[2019-12-20 12:44] LABS: Red Blood Cells-Urine 0-5 SEEN /hpf (0-5); Squamous Epithelial Cells - UA 0-5 SEEN /hpf (5-10); White Blood Cells 10-25 SEEN /hpf (0-5)
== END ==
LOC: INT LAB 12:20
PROVIDERS: Physician Assistant Surgical; PCP Internal Medicine; Visit Provider Internal Medicine
DX: R35.0 Frequency of micturition (principal)
CPT/HCPCS: 81001; 87077; 87086; 87088; 87186

== ENCOUNTER 2020-01-22 19:41 | Emergency (ER) | payer OTHER, SELFPAY ==
[2019-11-02 10:16] VITALS: BMI 26.6
[2020-01-22 19:41] VITALS: BP 152/85; PULSE 77; RESP 16; TEMP 36.3; O2SAT 99; BMI 26.9
--- NOTE | 2020-01-22 20:03 | EKG12_ITS ---
Test Reason : DYSRHYTHMIA Blood Pressure : / mmHG Vent. Rate : 066 BPM Atrial Rate : 066 BPM P-R Int : 164 ms QRS Dur : 098 ms QT Int : 408 ms P-R-T Axes : 022 -04 017 degrees QTc Int : 427 ms Normal sinus rhythm Normal ECG Confirmed by CARLITO DANIELS, VIV ([id number]), editorial cartoonist BENJAMÍN NOVOA ([id number]) on 01/28/2020 1:17:47 PM Referred By: BRINAA Confirmed By:ANGELA ESTEBAN MD
--- NOTE | 2020-01-22 20:50 | ED.VISSUMM ---
- ER Visit Summary Date of Service: 01/22/20 Chief Complaint: Shortness of breath and dizziness History of Present Illness: The patient is a 59 F who complains of shortness of breath and dizziness. She wore a new mask to work and that made her short of breath and dizzy. She checked her blood pressure and it was higher than normal at 160/80. She had no chest pain during this time. Now that she has another mask on she is feeling much better and has no symptoms. Physical Examination: Vital signs reviewed. HEENT exam unremarkable. Heart is regular rate and rhythm without murmurs. Lungs are clear to auscultation. Abdomen is soft and nontender. Extremities reveal no edema. Skin exam normal. Neurologic exam normal. Test Results: Blood glucose is unremarkable. EKG is sinus rhythm with a rate of 66. No ST changes Emergency Department Course and Treatment: The patient is currently asymptomatic. Her blood pressure is now 131/84. She feels asymptomatic throughout her ED stay. I feel she requires no imaging or lab testing except for a blood glucose check which is unremarkable. Patient will be educated not to use the mask she wore today and she will follow-up with her doctor Treatment Plan: [] Disposition: Discharge Impression: Dyspnea, dizziness This note was generated with [employer] dictation software. It may contain incorrect words, spelling, and punctuation that were not noted in review of the chart prior to signing ED Disposition - Plan for ED Patient: Disposition: Home or Assisted Living Instructions: ED Dyspnea Referrals: Apolinar Hopson MD [Primary Care Provider] -
[2020-01-22 20:51] LABS: Bedside Glucose 104 mg/dL (70-110)
[2020-01-22 21:26] VITALS: BP 136/88
== END 2020-01-22 21:30 | disposition home or self-care (01) ==
PROVIDERS: Emergency Provider Emergency Medicine; PCP Internal Medicine
DX: R06.00 Dyspnea, unspecified (principal); R42 Dizziness and giddiness
CPT/HCPCS: 82962; 93005; 99282

== ENCOUNTER → 2020-03-21 09:41 | Outpatient (CLI) | payer OTHER, SELFPAY ==
[2020-03-21 09:11] VITALS: BMI 27.2
[2020-03-21 12:56] LABS: Absolute Lymphocyte Count 2.06 X10^3/uL (0.83-4.51); Absolute Neutrophil Count 3.2 X10^3/uL (2.0-7.7); Basophil# 0.02 X10^3/uL; Basophil% 0.3 % (0-1); Eosinophil# 0.15 X10^3/uL; Eosinophils% 2.6 % (0-5); Hematocrit 45.4 % (37-47); Hemoglobin 14.5 g/dL (12.0-15.0); Lymphocyte # 2.06 X10^3/ul (4.0); Lymphocyte % 35.1 % (19-41); Mean Corp Hgb Conc 31.9 g/dL (32-36); Mean Corpuscular Hgb 28.2 pg (27.0-32.0); Mean Corpuscular Volume 88.2 fL (81-99); Mean Platelet Vol. 10.5 fl (6.2-12.0); Monocyte# 0.46 X10^3/uL; Monocyte% 7.8 % (0-10); NRBC Flagged by Analyzer 0 % (0-5); Neutrophil # 3.15 X10^3/uL (2.7-7.7); Neutrophil % 53.7 % (47-70); Platelet Count 238 K/mm3 (150-450); RBC Distribution Width SD 42.5 fl (35.1-43.9); Red Blood Count 5.15 M/mm3 (4.2-5.4); White Blood Count 5.9 K/mm3 (4.4-11.0)
[2020-03-21 13:12] LABS: Creatinine, Urine (random) < 13.00 mg/dL (NO RANGE EST.); Microalbumin,Random Urine < 5.0 mg/L (NO RANGE EST.)
[2020-03-21 13:19] LABS: ALB/GLOB Ratio 1.2 RATIO (0.9-2.4); AST(SGOT) 20 U/L (15-37); Alanine Aminotransfer ALT/SGPT 41 U/L (13-56); Alkaline Phosphatase 135 U/L (45-117); Anion Gap 10 (5-15); BUN 16 mg/dL (7-18); BUN/Creat Ratio 21.4 RATIO (10-20); Calcium,Total 9.5 mg/dL (8.5-10.1); Chloride 99 mmol/L (98-107); Cholesterol 146 mg/dL (200); Creatinine, Serum 0.75 mg/dL (0.55-1.02); EST Glomerular Filtration Rate 84 mL/min (>60); Est Glom Filt Rate - Afr Amer 102 mL/min (>60); Globulin 3.2 g/dL (2.2-4.2); Glucose 226 mg/dL (74-106); High Density Lipoprotein 46 mg/dL; Potassium 4.6 mmol/L (3.5-5.1); Protein, Total 7.2 g/dL (6.4-8.2); Sodium Level 134 mmol/L (136-145); Triglycerides 387 mg/dL; Very Low Density Lipoprotein 77 mg/dL (5-40)
== END ==
PROVIDERS: PCP Internal Medicine; Referring Provider Internal Medicine; Visit Provider Internal Medicine
DX: I10 Essential (primary) hypertension (principal); E11.9 Type 2 diabetes mellitus without complications
CPT/HCPCS: 36415; 80053; 80061; 82043; 82570; 85025